=== PATIENT | female | born 1960 | race African-American/Black ===

== ENCOUNTER → 2021-04-27 | Outpatient (CLI) | payer OTHER ==
[~2021-04-27] MED LIST: HYDROCHLOROTHIA25 M1 OR; PERCOCET 5-3251 EACH PO; XANAX 0.5 MG0.5 M1 OR
== END ==
LOC: RAD 09:28
PROVIDERS: ATTEND Pediatrics
DX: J84.10 Pulmonary fibrosis, unspecified (principal); R06.00 Dyspnea, unspecified; R91.8 Other nonspecific abnormal finding of lung field; Z77.090 Contact with and (suspected) exposure to asbestos

== ENCOUNTER → 2022-01-02 | Outpatient (CLI) | payer OTHER | LOC: RAD 11:37 | PROVIDERS: ATTEND Pediatrics | DX: R06.02 Shortness of breath (principal); I10 Essential (primary) hypertension; R09.89 Other specified symptoms and signs involving the circulatory and respiratory systems; E11.9 Type 2 diabetes mellitus without complications ==